=== PATIENT | male | born 1980 | race Caucasian/White ===

== ENCOUNTER 2016-11-19 10:51 | Emergency (ER) | payer MEDICAID ==
[2016-11-19 10:58] VITALS: TEMP 97.7
[2016-11-19] MEDS ORDERED: fentaNYL 100 MCG/2 ML INJ ONE (11:33)
--- NOTE | 2016-11-19 11:45 | EDPHY ---
H & P Time Seen by Provider: 11/19/16 11:06 HPI/ROS: CHIEF COMPLAINT: Left lower rib and upper abdominal pain. HISTORY OF PRESENT ILLNESS: 36-year-old male presents to the emergency department by private vehicle complaining of left lower rib and upper abdominal pain after falling on the stump of a tree nearly 24 hours ago. He did not hit his head or lose consciousness. Immediately felt pain in his lower rib. She feels mildly short of breath. He denies neck or back pain. He did not hit his head. No paresthesias in his upper or lower extremity. No injury to the lower extremities. REVIEW OF SYSTEMS: Constitutional: No fever, no chills. Eyes: No double or blurry vision. ENT: No sore throat. Respiratory: Rib pain as above. Mild shortness of breath. No cough. Cardiac: No chest pain. Gastrointestinal: Left upper abdominal pain. No vomiting or diarrhea Genitourinary: No dysuria. Musculoskeletal: No neck or back pain. Skin: No rashes. Neurological: No headache. Past Medical/Surgical History: Negative Social History: Single Smoking Status: Current every day smoker Physical Exam: General Appearance: Alert, no distress. No visible signs of trauma to his head. Mentating normally and answering questions appropriately. Eyes: Pupils equal and round. Extraocular motions are all intact. ENT: Mouth: Mucous membranes moist. Respiratory: No wheezing, rhonchi, or rales, lungs are clear to auscultation. Reproducible pain with palpation to the left lateral aspect of the lower chest in the mid axillary line especially. No palpable crepitus or other bony abnormality. No ecchymosis noted. Cardiovascular: Regular rate and rhythm. Gastrointestinal: Tenderness with palpation in the left upper quadrant. There is no rebound, guarding or masses noted. Mild CVA tenderness on the left, none on the right. Neurological: Alert and oriented x 3, cranial nerves II through XII grossly intact Skin: Warm and dry, no rashes. Musculoskeletal: Nontender to palpate along the cervical, thoracic or lumbar spine. Neck is supple. Extremities: Full range of motion and no peripheral edema. Psychiatric: Patient is oriented X 3, there is no agitation. Constitutional: Initial Vital Signs Temperature (C) 36.5 C 11/19/16 10:55 Heart Rate 68 11/19/16 10:55 Respiratory Rate 16 11/19/16 10:55 Blood Pressure 118/77 11/19/16 10:55 O2 Sat (%) 96 11/19/16 10:55 O2 Delivery Mode Room Air Allergies/Adverse Reactions: No Known Allergies Allergy (Unverified 11/19/16 10:53) Home Medications: Medication Instructions Recorded NK [No Known Home Meds] 11/19/16 Medical Decision Making - Diagnostics Imaging Results: Imaging Impressions Abdomen CT 11/19/16 12:10 Impression: 1. Tiny amount of pelvic free fluid. 2. Likely incidental short segment jejunal intussusception Results called to Dr. Joanna Murray at 1:49 PM. General information for patients regarding this examination can be found at [email or web address]. If you have questions or comments about this report, please contact me at (hospital) or [phone] (cell). Imaging: Discussed imaging studies w/ sheet metal engineer Radiologist ED Course/Re-evaluation: 36-year-old male presents to the emergency department with left low rib pain and left upper abdominal pain. I was concerned about possible intra-abdominal injury. This was discussed with the patient. I discussed the pros and cons of CT imaging including radiation exposure the patient agrees. CT imaging reveals no obvious rib fracture and no solid organ injury. There was a very small amount of free fluid in the pelvis as well as a possible jejunal intussusception. I spoke with Dr. Bray, on-call surgeon, who reviewed his CT scan and he does not feel that the patient has any need for admission or surgery. He felt that these are more incidental findings. The patient will be discharged home. I encouraged anti-inflammatories. I encouraged to take deep breaths. He was also encouraged to return to the emergency department if his symptoms changed or if he felt short of breath or if he felt worse in any way. He was comfortable with this plan. Differential Diagnosis: Including but not limited to rib fracture, rib contusion, intra-abdominal injury - Data Points Laboratory Results: 11/19/16 11:37 POC Hgb 18.4 gm/dL H gm/dL (13.7-17.5) POC Hct 54 % H % (40-51) POC Sodium 142 mEq/L mEq/L (134-144) POC Potassium 3.9 mEq/L mEq/L (3.3-5.0) POC Chloride 104 mEq/L mEq/L (97-110) POC BUN 9 mg/dL mg/dL (7-23) POC Creatinine 1.0 mg/dL mg/dL (0.7-1.3) POC Glucose 94 mg/dL mg/dL (70-100) Medications Given: Discontinued Medications Fentanyl (Sublimaze) 50 mcg IVP EDNOW ONE Stop: 11/19/16 11:50 Last Admin: 11/19/16 11:50 Dose: 50 mcg Point of Care Test Results: 11/19/16 11:37 POC Sodium 142 POC Potassium 3.9 POC Chloride 104 POC BUN 9 POC Creatinine 1.0 POC Glucose 94 Departure - Departure Disposition: Home, Routine, Self-Care Clinical Impression: Contusion of rib on left side Qualifiers: Encounter type: initial encounter Qualified Code(s): S20.212A - Contusion of left front wall of thorax, initial encounter Condition: Good Instructions: Rib Contusion (ED) Additional Instructions: Ibuprofen 600 mg every 8 hours as needed for pain. Deep breaths. Return to the emergency department if you feel short of breath, if her pain worsens, or if you feel worse in any way. Referrals: Dimas Pinedo MD [Medical Doctor] - 2-3 days, if not improved (Primary care provider marketing assistant retail division)
[2016-11-19] MEDS ORDERED: fentaNYL 100 MCG/2 ML INJ IVP ONE (11:49)
[2016-11-19] MEDS ORDERED: IOPAMIDOL (ISOVUE-300) 100 ML BTL ONE (12:24)
[2016-11-19 14:10] VITALS: BP 113/73; PULSE 62; RESP 18; O2SAT 93
== END 2016-11-19 14:10 | disposition home or self-care (01) ==
DX: S20.212A Contusion of left front wall of thorax, initial encounter (principal); F17.200 Nicotine dependence, unspecified, uncomplicated; W14.XXXA Fall from tree, initial encounter
CPT/HCPCS: 82947-QW; 96374; J3010; Q9967

== ENCOUNTER 2017-06-15 21:17 | Emergency (ER) | payer MEDICAID ==
[2017-06-15 21:25] VITALS: TEMP 97.3
[2017-06-15] MEDS ORDERED: IPRATROPIUM/ALBUTEROL 3 ML DEYVIAL IH ONE (21:50)
--- NOTE | 2017-06-15 21:54 | EDPHY ---
H & P Stated Complaint: Drank Gasoline siphoning Source: Patient Exam Limitations: No limitations - Personal History Current Tetanus/Diphtheria Vaccine: Unsure Current Tetanus Diphtheria and Acellular Pertussis (TDAP): Unsure - Medical/Surgical History Hx Asthma: No Hx Chronic Respiratory Disease: No Hx Diabetes: No Hx Cardiac Disease: No Hx Renal Disease: No Hx Cirrhosis: No Hx Alcoholism: No Hx HIV/AIDS: No Hx Splenectomy or Spleen Trauma: No Other PMH: denies - Social History Smoking Status: Current every day smoker Time Seen by Provider: 06/15/17 21:51 HPI/ROS: HPI: This is a 37-year-old male who presents with Chief Complaint: Drank Gasoline siphoning Location: Chest Quality:Drank Gasoline siphoning Duration: 2 hr prior to arrival Signs and Symptoms: no shortness of breath at rest, no shortness of breath on exertion, no cough, no chest pain, no palpitations, no lower extremity edema, no wheezing, no orthopnea, no paroxysmal nocturnal dyspnea, no fever, no injury/ trauma, no hemoptysis Timing: Acute Severity: Moderate Context: Patient is a tobacco user presents with complaints of accidentally ingesting gasoline while siphoning through along 2 ft 2 approximately 1 and half to 2 hr prior to arrival. He believes he ingested approximately 1-2 oz. He immediately vomited. He has some wheezing and shortness of breath at 1st but that has resolved. No history of lung disease. Currently denies any abdominal pain/shortness of breath/wheezing/chest pain/dysphagia Modifying Factors: None Comment: ROS: see HPI Constitutional: No fever, no chills, no weight loss Eyes: No blurred vision Respiratory: No shortness of breath, no cough Cardiovascular: No chest pain, no palpitations, no lower extremity edema Gastrointestinal: No nausea, no vomiting, no diarrhea Genitourinary: No dysuria Extremities: No myalgias Neurologic: No weakness, no numbness Skin: No rashes Hematologic: No bruising, no bleeding MEDICAL/SURGICAL/SOCIAL HISTORY: Medical history: Generally healthy. Does not take any regular medications. Surgical history: Denies Social history: Single father of 5 children. CONSTITUTIONAL: Adult male, bundled up in winter clothing, smells of gasoline, awake and alert, no obvious distress HEENT: Atraumatic and normocephalic, PERRL, EOMI. Tympanic membranes clear. Oropharynx clear, no exudate and moist pink mucosa. Airway patent. No lymphadenopathy. No meningismus. Cardiovascular: Normal S1/S2, regular rate, regular rhythm, without murmur rub or gallop. PULMONARY/CHEST: Symmetrical and nontender. Clear to auscultation bilaterally. Good air movement. No accessory muscle usage. ABDOMEN: Soft, nondistended, nontender, no rebound, no guarding, no peritoneal signs, no masses or organomegaly. No CVAT. EXTREMITIES: 2/2 pulses, strength 5/5, no deformities, no clubbing, no cyanosis or edema. NEUROLOGICAL: no focal neuro deficits. GCS 15. SKIN: Warm and dry, no erythema. no rash. Good capillary refill. (Rossana Medrano) Constitutional: Initial Vital Signs Temperature (C) 36.3 C 06/15/17 21:23 Heart Rate 68 06/15/17 21:23 Respiratory Rate 16 06/15/17 21:23 Blood Pressure 111/82 H 06/15/17 21:23 O2 Sat (%) 95 06/15/17 21:23 O2 Delivery Mode Room Air Allergies/Adverse Reactions: No Known Allergies Allergy (Unverified 11/19/16 10:53) Home Medications: Medication Instructions Recorded NK [No Known Home Meds] 11/19/16 Medical Decision Making ED Course/Re-evaluation: Poison control called upon arrival. Advised that if no signs of respiratory distress or aspiration. P.o. trial and discharge home with supportive care. O2 sats 95% no signs of airway compromise/respiratory distress/hypoxia Patient given DuoNeb therapy and GI cocktail with adequate relief. Passed p.o. trial without difficulty prior to discharge. This patient was seen under the supervision of my secondary supervising physician. I evaluated care for this patient independently. (Rossana Medrano) Differential Diagnosis: Differential diagnosis includes but is not limited to respiratory distress, aspiration pneumonia, gastritis. (Rossana Medrano) Other Provider: The patient was evaluated and managed by the Physician Factory Helper. My co- signature indicates that I have reviewed this chart and I agree with the findings and plan of care as documented. I am the secondary supervising physician. (Niharika Burton) - Data Points Medications Given: Discontinued Medications Al Hydroxide/Mg Hydroxide (Maalox Susp) 30 ml PO ONCE ONE Stop: 06/15/17 22:01 Last Admin: 06/15/17 22:10 Dose: 30 ml Albuterol/Ipratropium (Duoneb) 3 ml IH EDNOW ONE Stop: 06/15/17 21:51 Last Admin: 06/15/17 22:05 Dose: 3 ml Hyoscyamine Sulfate (Levsin, Hyomax-Sl) 0.25 mg PO ONCE ONE Stop: 06/15/17 22:01 Last Admin: 06/15/17 22:10 Dose: 0.25 mg Lidocaine (Lidocaine 2% Viscous) 15 ml PO ONCE ONE Stop: 06/15/17 22:01 Last Admin: 06/15/17 22:10 Dose: 15 ml Departure - Departure Disposition: Home, Routine, Self-Care Clinical Impression: Accidental ingestion of substance Condition: Good Instructions: Gastritis (ED) Additional Instructions: Drink plenty of fluids. Eat a bland diet for the next 48 hours and then slowly advance as tolerated. Referrals: [facility],. [Clinic] - 2-3 days, if not improved
[2017-06-15] MEDS ORDERED: LIDOCAINE 2% VISCOUS 15 ML UDCUP PO ONE (22:00)
[2017-06-15] MEDS ORDERED: HYOSCYAMINE SULFATE 0.125 MG TAB PO ONE (22:00)
[2017-06-15] MEDS ORDERED: MAG HYDROX/AL HYDROX/SIMETH 30 ML UDCUP PO ONE (22:00)
[2017-06-15 22:16] VITALS: RESP 20; O2SAT 94
[2017-06-15 22:33] VITALS: BP 109/73; PULSE 63
== END 2017-06-15 22:37 | disposition home or self-care (01) ==
DX: T52.0X1A Toxic effect of petroleum products, accidental (unintentional), initial encounter (principal); F17.200 Nicotine dependence, unspecified, uncomplicated